=== PATIENT | female | born 1955 | race Caucasian/White ===

== ENCOUNTER → 2021-03-28 15:16 | Outpatient (CLI) | payer MEDICARE, SELFPAY ==
--- NOTE | 2021-03-28 | DI.MG.S_ITS ---
BILATERAL DIGITAL SCREENING MAMMOGRAM 3D/2D WITH CAD: 03/28/2021 CLINICAL: Routine screening. Comparison is made to exams dated: 09/16/2019 mammogram, 09/11/2018 stereotactic biopsy, 09/11/2018 mammogram, 09/03/2018 mammogram, 08/28/2018 mammogram, and 08/16/2016 mammogram - outside location. The tissue of both breasts is predominantly fatty. Current study was also evaluated with a Computer Aided Detection (CAD) system. There is an asymmetry in the right breast anterior depth central to the nipple seen on the craniocaudal view only. There is an asymmetry in the left breast middle depth central to the nipple seen on the craniocaudal view only. There also is an asymmetry in the left breast middle depth central to the nipple seen on the craniocaudal view only. No other significant masses or calcifications are seen in either breast. IMPRESSION: INCOMPLETE: NEEDS ADDITIONAL IMAGING EVALUATION The asymmetry in the right breast anterior depth central to the nipple seen on the craniocaudal view only is indeterminate. Additional views with possible ultrasound are recommended. The asymmetry in the left breast middle depth central to the nipple seen on the craniocaudal view only is indeterminate. Additional views with possible ultrasound are recommended. The asymmetry in the left breast middle depth central to the nipple seen on the craniocaudal view only is indeterminate. Additional views with possible ultrasound are recommended. This exam was interpreted at Station ID: [id number]. NOTE: For mammograms, a report in lay terms will be sent to the patient. Approximately 15% of breast malignancies will not be visualized mammographically. In the management of a palpable breast mass, a negative mammogram must not discourage biopsy of a clinically suspicious lesion. Electronically Signed By: Dhruv Calvillo M.D., jr/julissa:03/28/2021 15:40:05 letter sent: Additional Imaging Needed ACR BI-RADS Category 0: Incomplete 3340F
== END ==
PROVIDERS: PCP Internal Medicine; Referring Provider Internal Medicine; Visit Provider Internal Medicine
DX: Z12.31 Encounter for screening mammogram for malignant neoplasm of breast (principal)
CPT/HCPCS: 77063; 77067

== ENCOUNTER → 2021-05-04 13:23 | Outpatient (CLI) | payer MEDICARE, SELFPAY ==
--- NOTE | 2021-05-04 | DI.MG.S_ITS ---
BILATERAL DIGITAL DIAGNOSTIC MAMMOGRAM 3D/2D WITH ADDITIONAL VIEWS: 05/04/2021 CLINICAL: Additional evaluation requested from prior study. Comparison is made to exams dated: 03/28/2021 mammogram - [facility], 09/16/2019 mammogram, and 09/11/2018 mammogram - outside location. The tissue of both breasts is heterogeneously dense. This may lower the sensitivity of mammography. There is an oval equal density focal asymmetry in the right breast at 12 o'clock middle depth. This is seen in additional views. There is an oval equal density focal asymmetry in the left breast at 3 o'clock middle depth. This is seen in additional views. There also is an oval equal density focal asymmetry in the left breast at 5 o'clock posterior depth. This is seen in additional views. No other significant masses or calcifications are seen in either breast. IMPRESSION: INCOMPLETE: NEEDS ADDITIONAL IMAGING EVALUATION The oval equal density focal asymmetry in the right breast at 12 o'clock middle depth is indeterminate. An ultrasound is recommended. The oval equal density focal asymmetry in the left breast at 3 o'clock middle depth is indeterminate. An ultrasound is recommended. The oval equal density focal asymmetry in the left breast at 5 o'clock posterior depth is indeterminate. An ultrasound is recommended. This exam was interpreted at Station ID: [id number]. NOTE: For mammograms, a report in lay terms will be sent to the patient. Approximately 15% of breast malignancies will not be visualized mammographically. In the management of a palpable breast mass, a negative mammogram must not discourage biopsy of a clinically suspicious lesion. Electronically Signed By: Yefri machado/julissa:05/04/2021 15:28:47 ACR BI-RADS Category 0: Incomplete 3340F
--- NOTE | 2021-05-04 13:24 | DI.US.S_ITS ---
LIMITED ULTRASOUND OF LEFT BREAST: 05/04/2021 CLINICAL: Patient returns today to evaluate an asymmetry in the left breast. Comparison is made to exams dated: 05/04/2021 mammogram, 03/28/2021 mammogram - [facility], 09/16/2019 mammogram, 09/11/2018 mammogram, 09/03/2018 mammogram, and 08/28/2018 mammogram - outside location. Color flow ultrasound of the left breast 3-5 o'clock region was performed. Molina scale images of the real-time examination were reviewed. There is a 0.4 cm x 0.4 cm x 0.4 cm oval cyst with a smooth internal wall in the left breast at 3 o'clock middle depth 5 cm from the nipple. This oval cyst is hypoechoic with posterior acoustic enhancement. This correlates with mammography findings. There also is a 0.4 cm x 0.5 cm x 0.3 cm oval cyst with a smooth internal wall in the left breast at 5 o'clock posterior depth 6 cm from the nipple. This oval cyst is hypoechoic with posterior acoustic enhancement. This correlates with mammography findings. IMPRESSION: PROBABLY BENIGN The 0.4 cm x 0.4 cm x 0.4 cm oval cyst in the left breast at 3 o'clock middle depth is consistent with a complicated cyst and is probably benign. The 0.4 cm x 0.5 cm x 0.3 cm oval cyst in the left breast at 5 o'clock posterior depth is consistent with a complicated cyst and is probably benign. A follow-up mammogram and an ultrasound in 6 months is recommended to demonstrate stability. This exam was interpreted at Station ID: [id number]. Electronically Signed By: Yefri machado/julissa:05/04/2021 16:41:50 letter sent: Followup Recommended Ultrasound BI-RADS: 3 Probably benign
--- NOTE | 2021-05-04 13:24 | DI.US.S_ITS ---
LIMITED ULTRASOUND OF RIGHT BREAST: 05/04/2021 CLINICAL: Patient returns today to evaluate an asymmetry in the right breast. Comparison is made to exams dated: 05/04/2021 mammogram, 03/28/2021 mammogram - [facility], 09/16/2019 mammogram, 09/11/2018 mammogram, 09/03/2018 mammogram, and 08/28/2018 mammogram - outside location. Color flow and real-time ultrasound of the right breast 11-12 o'clock region were performed. There is a 0.4 cm x 0.4 cm x 0.4 cm oval cyst with a smooth internal wall in the right breast at 11 o'clock middle depth 5 cm from the nipple. This oval cyst is hypoechoic with posterior acoustic enhancement. This correlates as an incidental finding. There also is a 0.5 cm x 0.4 cm x 0.4 cm oval cyst with a smooth internal wall in the right breast at 12 o'clock middle depth 3 cm from the nipple. This oval cyst is hypoechoic with posterior acoustic enhancement. This correlates with mammography findings. IMPRESSION: PROBABLY BENIGN The 0.4 cm x 0.4 cm x 0.4 cm oval cyst in the right breast at 11 o'clock middle depth is consistent with a complicated cyst and is probably benign. The 0.5 cm x 0.4 cm x 0.4 cm oval cyst in the right breast at 12 o'clock middle depth is consistent with a complicated cyst and is probably benign. A follow-up ultrasound in 6 months is recommended to demonstrate stability. This exam was interpreted at Station ID: [id number]. Electronically Signed By: Yefri machado/julissa:05/04/2021 16:46:11 Ultrasound BI-RADS: 3 Probably benign
== END ==
PROVIDERS: PCP Internal Medicine; Referring Provider Internal Medicine; Visit Provider Internal Medicine
DX: R92.8 Other abnormal and inconclusive findings on diagnostic imaging of breast (principal); N60.01 Solitary cyst of right breast; N60.02 Solitary cyst of left breast; Z13.820 Encounter for screening for osteoporosis; Z78.0 Asymptomatic menopausal state; M85.851 Other specified disorders of bone density and structure, right thigh
CPT/HCPCS: 76642; 77066; 77080; G0279

== ENCOUNTER → 2022-01-30 08:48 | Outpatient (CLI) | payer MEDICARE, SELFPAY ==
--- NOTE | 2022-01-30 | DI.MG.S_ITS ---
BILATERAL DIGITAL DIAGNOSTIC MAMMOGRAM 3D/2D: 01/30/2022 CLINICAL: Short term follow up. Comparison is made to exams dated: 05/04/2021 mammogram, 03/28/2021 mammogram - [facility], 09/16/2019 mammogram - outside location, 05/04/2021 ultrasound, and 05/04/2021 ultrasound - [facility]. Both breasts are heterogeneously dense, which may obscure small masses (category c / 51-75% glandular tissue). There is an asymmetry in the right breast anterior depth central to the nipple seen on the craniocaudal view only. This is less prominent. There is an asymmetry in the left breast posterior depth lateral region seen on the craniocaudal view only. This is not significantly changed. There also is an asymmetry in the left breast middle depth central to the nipple seen on the craniocaudal view only. This is not significantly changed. Post operative finding in the right breast. No other significant masses or calcifications are seen in either breast. IMPRESSION: INCOMPLETE: NEEDS ADDITIONAL IMAGING EVALUATION The asymmetry in the right breast anterior depth central to the nipple seen on the craniocaudal view only is indeterminate. The asymmetry in the left breast posterior depth lateral region seen on the craniocaudal view only is indeterminate. The asymmetry in the left breast middle depth central to the nipple seen on the craniocaudal view only is indeterminate. A targeted ultrasound is recommended and left side will immediately follow. Right side could not be preformed today. The patient should be brought back when feasible. Based on the Tyrer Cuzick model (a risk assessment model) the patient's lifetime risk is 9.7% and her 10 year risk is 4.9%. According to the ACR, ACS, and NCCN guidelines, an annual breast MRI exam along with mammogram is recommended if the patient's lifetime risk is 20% or greater. This exam was interpreted at Station ID: [id number]. NOTE: For mammograms, a report in lay terms will be sent to the patient. Approximately 15% of breast malignancies will not be visualized mammographically. In the management of a palpable breast mass, a negative mammogram must not discourage biopsy of a clinically suspicious lesion. Electronically Signed By: Georges Pimentel M.D. [facility] [place]/:01/30/2022 10:23:52 Entry: - 01/31/2022 09:12:31 letter sent: Additional Imaging Needed ACR BI-RADS Category 0: Incomplete 3340F
--- NOTE | 2022-01-30 08:49 | DI.US.S_ITS ---
LIMITED ULTRASOUND OF LEFT BREAST: 01/30/2022 CLINICAL: 6 month follow-up of cysts. Comparison is made to exams dated: 01/30/2022 mammogram, 05/04/2021 ultrasound, 05/04/2021 mammogram, 03/28/2021 mammogram - [facility], 09/16/2019 mammogram, and 09/11/2018 stereotactic biopsy - outside location. Color flow and real-time ultrasound of the left breast were performed. Molina scale images of the real-time examination were reviewed. There is a stable 0.4 cm x 0.3 cm x 0.3 cm oval cyst in the left breast at 3 o'clock middle depth 5 cm from the nipple. This oval cyst is hypoechoic with posterior acoustic enhancement. This correlates with mammography findings. There also is a stable 0.4 cm x 0.3 cm x 0.3 cm oval cyst in the left breast at 5 o'clock posterior depth 6 cm from the nipple. This oval cyst is hypoechoic with posterior acoustic enhancement. This correlates with mammography findings. IMPRESSION: PROBABLY BENIGN Stable 0.4 cm complicated cyst in the left breast at 3 o'clock middle depth is probably benign. Stable 0.4 cm complicated cyst in the left breast at 5 o'clock posterior depth is probably benign. A follow-up mammogram and an ultrasound in 6 months is recommended to demonstrate stability. Exam findings were conveyed to the patient. This exam was interpreted at Station ID: [id number]. Electronically Signed By: Georges Pimentel M.D. [facility] [place]/:01/30/2022 09:56:47 letter sent: Followup Recommended Ultrasound BI-RADS: 3 Probably benign
== END ==
PROVIDERS: PCP Internal Medicine; Referring Provider Internal Medicine; Visit Provider Internal Medicine
DX: R92.8 Other abnormal and inconclusive findings on diagnostic imaging of breast (principal); N60.02 Solitary cyst of left breast
CPT/HCPCS: 76642; 77066; G0279

== ENCOUNTER → 2022-03-01 14:13 | Outpatient (CLI) | payer MEDICARE, SELFPAY ==
--- NOTE | 2022-03-01 | DI.US.S_ITS ---
ULTRASOUND OF RIGHT BREAST: 03/01/2022 CLINICAL: 6 month follow-up of cysts. Comparison is made to exams dated: 01/30/2022 mammogram, 05/04/2021 ultrasound, 05/04/2021 mammogram, and 03/28/2021 mammogram - [facility]. Color flow ultrasound of the right breast was performed. Molina scale images of the real-time examination were reviewed. There is a stable 0.5 cm round cyst in the right breast at 11 o'clock middle depth 5 cm from the nipple. This round cyst is hypoechoic with posterior acoustic enhancement. This correlates with mammography findings. Color flow imaging demonstrates that there is no vascularity present. There also is a 0.2 cm x 0.2 cm x 0.2 cm oval cyst in the right breast at 12 o'clock anterior depth 3 cm from the nipple. This oval cyst is hypoechoic. This abnormality is decreased in size and correlates with mammography findings. Color flow imaging demonstrates that there is no vascularity present. Additionally, there is a 0.3 cm x 0.3 cm x 0.3 cm oval cyst in the right breast at 1 o'clock anterior depth 3 cm from the nipple. This oval cyst is hypoechoic. There is an echogenic posterior wall. This correlates as an incidental finding but was not seen on the prior mammogram. Color flow imaging demonstrates that there is no vascularity present. IMPRESSION: PROBABLY BENIGN The 0.5 cm round cyst in the right breast at 11 o'clock middle depth is stable, consistent with a complicated cyst and is probably benign. The 0.2 cm x 0.2 cm x 0.2 cm oval cyst in the right breast at 12 o'clock anterior depth is decreasing in size, consistent with a complicated cyst and is probably benign. The 0.3 cm x 0.3 cm x 0.3 cm oval cyst in the right breast at 1 o'clock anterior depth is incidentally found, consistent with a complicated cyst and is probably benign. A follow-up right mammogram and an ultrasound in 6 months is recommended to demonstrate stability. The patient will be due for bilateral mammograms at that same visit. Findings and recommendations were conveyed to the patient at time of exam. This exam was interpreted at Station ID: [id number]. Electronically Signed By: Chery alejandro/:03/01/2022 16:51:52 letter sent: Followup Recommended Ultrasound BI-RADS: 3 Probably benign
--- NOTE | 2022-03-01 | DI.US.S_ITS ---
PROCEDURE: US THYROID INDICATIONS: NONTOXIC MULTINODULAR GOITER TECHNIQUE: Real-time scanning was performed of the thyroid gland, with image documentation. COMPARISON: None. FINDINGS: Right: Thyroid lobe measures 4.1 x 1.5 x 2.0 cm, and is heterogeneous in echotexture. Left: Thyroid lobe measures 5.5 x 2.7 x 2.0 cm, and is heterogeneous in echotexture. Isthmus: 3.5 mm thick. Nodule number: 1 Location: Left superior lateral Size: 2.0 x 1.2 x 1.5 cm. Composition: Solid Echogenicity: Isoechoic Shape: wider than tall. Margins: Small both Echogenic foci: Non Total points: 3 ACR TI-RADS category: 3 Nodule number: 2 Location: Left superior medial Size: 0.9 x 0.7 x 1.0 cm. Composition: Solid Echogenicity: Hypoechoic Shape: wider than tall. Margins: Smooth Echogenic foci: Non Total points: 4 ACR TI-RADS category: 4 Nodule number: 3 Location: Left superior medial Size: 1.6 x 1.0 x 1.7 cm. Composition: Solid Echogenicity: Isoechoic Shape: wider than tall. Margins: Small Echogenic foci: Non Total points: 3 ACR TI-RADS category: 3 Nodule number: 4 Location: Left mid Size: 2.3 x 2.0 x 2.2 cm. Composition: Solid Echogenicity: Hyperechoic Shape: wider than tall. Margins: Small Echogenic foci: Non Total points: 3 ACR TI-RADS category: 3 IMPRESSION: Multiple thyroid nodules are identified. Ultrasound findings are suggestive of multinodular goiter. Nodule 2 is moderately suspicious and other nodules are mildly are suspicious. Recommend a follow-up ultrasound in 12 months. Please see enclosed follow-up recommendation. ACR TI-RADS definitions and recommendations: TI-RADS 1 (benign): 0 points. FNA not needed. TI-RADS 2 (not suspicious): 2 points. FNA not needed. TI-RADS 3 (mildly suspicious): 3 points. * FNA if 2.5 cm or larger, follow up if 1.5 cm or larger (at 1, 3, and 5 years). TI-RADS 4 (moderately suspicious): 4-6 points. * FNA if 1.5 cm or larger, follow up if 1 cm or larger (at 1, 2, 3, and 5 years). TI-RADS 5 (highly suspicious): 7 points or more. * FNA if 1 cm or larger, follow up if 0.5 cm or larger (every year for 5 years). Dictated by: Mar Gagnon M.D. on 03/03/2022 at 16:24 Approved by: Mar Gagnon M.D. on 03/03/2022 at 16:29
== END ==
PROVIDERS: PCP Internal Medicine; Referring Provider Internal Medicine; Visit Provider Internal Medicine
DX: R92.8 Other abnormal and inconclusive findings on diagnostic imaging of breast (principal); E04.2 Nontoxic multinodular goiter; N60.01 Solitary cyst of right breast
CPT/HCPCS: 76536; 76642

== ENCOUNTER → 2022-06-14 10:10 | Outpatient (CLI) | payer MEDICARE, SELFPAY ==
--- NOTE | 2022-06-14 | DI.RAD.S_ITS ---
PROCEDURE: FL BARIUM SWALLOW INDICATIONS: Dysphagia, unspecified COMPARISON: None. FINDINGS: Function: There is diminished esophageal stripping which is greater than expected for age. There is a persistent contrast column is seen within the esophagus in the prone position. In the upright position the contrast column is also seen but is brief. No elicited gastroesophageal reflux. There is normal transit of a calibrated barium tablet through the esophagus into the stomach. Morphology: Air-contrast images demonstrate normal mucosal morphology. Single contrast views show no esophageal strictures, extrinsic mass effects, or diverticula. Limited images of the stomach demonstrate normal appearance. IMPRESSION: [id number] esophageal dysmotility which is greater than expected for age. No elicited gastroesophageal reflux. No diverticulum. Dictated by: Georges Pimentel M.D. on 06/14/2022 at 12:58 Approved by: Georges Pimentel M.D. on 06/14/2022 at 13:05
== END ==
PROVIDERS: PCP Internal Medicine; Referring Provider Internal Medicine Gastroenterology; Visit Provider Internal Medicine Gastroenterology
DX: K21.9 Gastro-esophageal reflux disease without esophagitis (principal); K22.4 Dyskinesia of esophagus; R13.10 Dysphagia, unspecified; R11.10 Vomiting, unspecified
CPT/HCPCS: 74220

== ENCOUNTER 2022-07-31 08:16 | Day surgery (SDC) | payer MEDICARE, SELFPAY ==
--- NOTE | 2022-07-31 | PATH_ITS ---
[facility] Accession Number: [id number] No. of containers..04 Tissue . 01 Material submitted: . PART A: gastrointestinal site - ANTRUM BIOPSY PART B: gastrointestinal site - ANTRUM POLYPS PART C: esophagus - MID ESOPHAGUS BIOPSY PART D: colon - DESCENDING COLON POLYP . 01 Diagnosis: A. Gastric Antrum, Biopsy: Gastric antral mucosa with mild chronic inflammation. Negative for Helicobacter organisms by immunohistochemistry. Negative for intestinal metaplasia. Negative for dysplasia or malignancy. . B. Gastric Antral Polyps: Fundic gland polyps. No evidence of Helicobacter organisms on H/E stain. Negative for intestinal metaplasia. Negative for dysplasia and malignancy. Additional step sections examined. . C. Mid Esophagus, Biopsy: Squamous epithelium with no diagnostic abnormality. Intraepithelial eosinophils are not increased. Negative for dysplasia and malignancy. . D. Descending Colon Polyp: Serrated lesion, cannot exclude sessile serrated adenoma. [facility] 08/07/2022 1305 Local . 01 Comment: Part B: As part of routine production quality manager, Dr. Reyes has reviewed part B of this case and agrees there is no evidence of neoplasm. . . 01 Electronically signed: . Carter Mccall MD, PhD, Pathologist NPI- [id number] . 01 Gross description: . Part A: ANTRUM BIOPSY: Received in formalin are 4 fragment(s) of bojorquez, soft tissue measuring 0.1 x 0.1 x 0.1 cm to 0.2 x 0.2 x 0.2 cm submitted entirely in 1 cassette(s) Part B: ANTRUM POLYPS: Received in formalin are 3 fragment(s) of bojorquez, soft tissue measuring 0.2 x 0.2 x 0.2 cm to 0.3 x 0.3 x 0.3 cm submitted entirely in 1 cassette(s) Part C: MID ESOPHAGUS BIOPSY: Received in formalin is 1 fragment(s) of bojorquez, soft tissue measuring 0.4 x 0.2 x 0.1 cm submitted entirely in 1 cassette(s) Part D: DESCENDING COLON POLYP: Received in formalin is 1 fragment(s) of bojorquez, soft tissue measuring 0.3 x 0.2 x 0.2 cm submitted entirely in 1 cassette(s) /[facility]ISA 08/03/2022 0056 Local . 01 Microscopic: . A. An immunohistochemical stain was performed to evaluate for Helicobacter organisms and is negative. The control stain showed appropriate reactivity. . * This test was developed and its performance characteristics determined by [facility]. It has not been cleared or approved by the U.S. Food and Drug Administration. The FDA has determined that such clearance or approval is not necessary. This test is used for clinical purposes. It should not be regarded as investigational or for research. . 01 Pathologist provided ICD-10: K29.70, K31.7, R13.14, D12.4 . 01 CPT . 429924, 217940, 137280, 171807, R45522 Specimen Comment: A courtesy copy of this report has been sent to [phone] Performed at: 01 [facility] [address] [place] [address] [address], [place], [place] [id number] MD Roberto Reyes MD Phone: [phone]
[2022-07-31 08:52] VITALS: BP 132/73; PULSE 77; RESP 18; TEMP 36.1; O2SAT 95; BMI 29.9
[2022-07-31] MEDS: LACTATED RINGERS 1,000 ML 100 ML IV (09:02)
--- NOTE | 2022-07-31 09:53 | PM.HP.1 ---
History of Present Illness History of Present Illness Date Patient Seen: 07/31/22 Time Patient Seen: 09:53 Chief complaint: WIC Narrative: Colon cancer screening. Personal history of colon polyps. Dysphagia. I reviewed the recent barium. No focal strictures identified. [facility] Medical History Colon polyps Colonoscopy planned Depression GERD (gastroesophageal reflux disease) Hypercholesteremia Surgical History H/O breast biopsy History of hysteroscopy History of lumpectomy Social History household members: spouse Smoking Status: Never smoker alcohol intake: current Meds Home Medications and Allergies Home Medications Medication Instructions Recorded Confirmed Type Multi Vitamin 100 mg PO DAILY 07/31/22 07/31/22 History atorvastatin 20 mg PO DAILY 07/31/22 07/31/22 History meloxicam 15 mg PO DAILY 07/31/22 07/31/22 History pantoprazole 40 mg PO DAILY 07/31/22 07/31/22 History sertraline 200 mg PO DAILY 07/31/22 07/31/22 History Allergies Allergy/AdvReac Type Severity Reaction Status Date / Time No Known Drug Allergies Allergy Verified 07/31/22 08:29 Review of Systems Review of Systems ROS: Yes All systems reviewed with the patient and are negative except as otherwise documented Exam Vital Signs (past 8 hours): - 07/31/22 08:52 Temperature 97 F L Pulse Rate 77 Respiratory Rate 18 Blood Pressure 132/73 Pulse Oximetry 95 Oxygen Delivery Method Room Air Oxygen Delivery Method Room Air Const General: cooperative HENMT Head: normal to inspection Eyes General: appearance normal, both eyes and all related structures Neck Neck: normal visual inspection Chest Chest: normal inspection of the chest Resp Effort & Inspection: normal respiratory effort Cardio Rate: regular rate GI Inspection: normal to inspection Skin General: no rashes or lesions noted Neuro General: patient alert and patient awake Extrem General: normal to inspection and no pedal edema Psych Appearance: grossly normal Assessment & Plan Assessment & Plan narrative: 66-year-old female with dysphagia to pills and peanut butter. She is a remote history of colon polyps. EGD and colonoscopy are pursued today.
--- NOTE | 2022-07-31 09:55 | PM.PREOP ---
Pre-operative Note Interval Note History & Physical reviewed/Exam performed by Physician: Yes Changes to H&P: No ASA Class (for procedural sedation): II
--- NOTE | 2022-07-31 11:08 | P.OP.EGD&C_ITS ---
Operative Date/Time/Diagnoses Date of procedure: 07/31/22 Time of procedure: 11:08 Pre-op diagnosis: Dysphagia, personal history of colon polyps Post-op diagnosis: same Procedure & Clinicians Study performed: EGD with biopsies and colonoscopy with hot snare polypectomy Same procedure as scheduled: Yes Indications: Dysphagia and personal history of colon polyps Surgeon: Christian Younger Procedure Notes SCOAP/Timeout: Done Procedure in detail: After the risks and benefits were explained, written and verbal informed consent was obtained. The patient was brought into the procedure room and placed into the left lateral decubitus position. Please see anesthesia notes for sedation details. The scope was introduced into the mouth through the bite block and advanced under direct visualization to the 2nd portion of the duodenum. The scope was slowly withdrawn carefully examining the mucosa for any defects or lesions. Retroflexed views were accomplished in the stomach. The stomach was decompressed, the scope was then removed from the patient who tolerated the procedure well. The patient was then turned around a digital rectal examination was accomplished. The scope was introduced into the rectum and advanced under direct visualization to the cecum as identified by the appendiceal orifice and ileocecal valve. The scope was slowly withdrawn to carefully examine the mucosa for any defects or lesions. Multiple direct views were made through the dentate line for exclusion of pathology the colon procedure well. Adult colonoscope Bowel prep adequate Scope withdrawal time: 13 minutes Sedation minutes: 33 Complications: none Impression: 1. Duodenum: This was visually unremarkable from the bulb through to the 2nd portion. 2. Stomach: Patient had streaky erythema all throughout the antrum and biopsies were acquired for exclusion of Helicobacter. There were several scattered small benign-appearing polyps. A few of these were sampled for histopathologic analysis. Otherwise retroflexed views of the LES revealed a small sliding hiatal hernia. 3. Esophagus: The squamocolumnar junction correlated with the top of the gastric folds. GEJ was at approximately 40 cm from the incisors. No acute erosive changes no strictures no mass lesions. Mid esophageal biopsies were taken for exclusion of eosinophilic infiltration in that we did not identify any mucosal pathology to account for the dysphagia. 4. Colon: There was some diverticulosis in the left colon. Patient had grade 2 internal hemorrhoids. In the descending colon there was an approximately 6 mm sessile polyp removed with hot snare. No additional mucosal pathology was appreciated throughout. Endoscopic diagnosis 1. Subtle sliding hiatal hernia 2. Small gastric polyps 3. Gastropathy 4. Colon polyp 5. Diverticulosis 6. Grade 2 hemorrhoids Post-procedure Plan for aftercare: 1. Await histopathology. 2. Continue anti-reflux therapy. 3. Surveillance endoscopy will be considered after review of the polyp pathology. 4. Consideri ng personal history of colon polyps, repeat colonoscopy will likely be suggested for 5 years. Disposition: PACU
[2022-07-31 11:10] VITALS: BP 100/64; PULSE 56; RESP 14; TEMP 36.3; O2SAT 94
[2022-07-31 11:15] VITALS: BP 104/66; PULSE 54; RESP 14; O2SAT 96
[2022-07-31 11:21] VITALS: BP 108/49; PULSE 69; RESP 14; O2SAT 96
[2022-07-31 11:27] VITALS: BP 116/71; PULSE 56; RESP 12; TEMP 36.3; O2SAT 97
== END 2022-07-31 12:04 | disposition home or self-care (01) ==
PROVIDERS: PCP Internal Medicine; Referring Provider Internal Medicine Gastroenterology; Visit Provider Internal Medicine Gastroenterology
PROC: 0DJ08ZZ Inspection of Upper Intestinal Tract, Via Natural or Artificial Opening Endoscopic (ICD-10-PCS; CPT 43235; principal; 2022-07-31 09:30)
PROC: 0DJD8ZZ Inspection of Lower Intestinal Tract, Via Natural or Artificial Opening Endoscopic (ICD-10-PCS; CPT 45378; 2022-07-31 09:30)
DX: Z12.11 Encounter for screening for malignant neoplasm of colon (principal); Z86.010 Personal history of colon polyps; R13.10 Dysphagia, unspecified; K44.9 Diaphragmatic hernia without obstruction or gangrene; K31.9 Disease of stomach and duodenum, unspecified; K57.30 Diverticulosis of large intestine without perforation or abscess without bleeding; K64.1 Second degree hemorrhoids; K29.50 Unspecified chronic gastritis without bleeding; K31.7 Polyp of stomach and duodenum; D12.4 Benign neoplasm of descending colon
CPT/HCPCS: 45385; 43239; J2704

== ENCOUNTER → 2022-09-20 09:30 | Outpatient (CLI) | payer MEDICARE, SELFPAY ==
--- NOTE | 2022-09-20 | DI.MG.S_ITS ---
BILATERAL DIGITAL DIAGNOSTIC MAMMOGRAM 3D/2D: 09/20/2022 CLINICAL: Short term follow up for bilateral breasts. Comparison is made to exams dated: 01/30/2022 mammogram, 05/04/2021 mammogram, and 03/28/2021 mammogram - [facility]. Both breasts are heterogeneously dense, which may obscure small masses (category c / 51-75% glandular tissue). There is a stable asymmetry in the right breast anterior depth central to the nipple. There is a stable asymmetry in the left breast posterior depth lateral region. There also is a stable asymmetry in the left breast middle depth central to the nipple. No other significant masses or calcifications are seen in either breast. IMPRESSION: INCOMPLETE: NEEDS ADDITIONAL IMAGING EVALUATION The stable asymmetry in the right breast anterior depth central to the nipple is indeterminate. The stable asymmetry in the left breast posterior depth lateral region is indeterminate. The stable asymmetry in the left breast middle depth central to the nipple is indeterminate. A targeted ultrasound of the bilateral breasts is recommended and will be performed immediately following this exam. Based on the Tyrer Cuzick model (a risk assessment model) the patient's lifetime risk is 9.3% and her 10 year risk is 4.9%. According to the ACR, ACS, and NCCN guidelines, an annual breast MRI exam along with mammogram is recommended if the patient's lifetime risk is 20% or greater. This exam was interpreted at Station ID: [id number]. NOTE: For mammograms, a report in lay terms will be sent to the patient. Approximately 15% of breast malignancies will not be visualized mammographically. In the management of a palpable breast mass, a negative mammogram must not discourage biopsy of a clinically suspicious lesion. Electronically Signed By: Rosmery Medina M.D. lk/:09/20/2022 10:10:52 ACR BI-RADS Category 0: Incomplete 3340F
--- NOTE | 2022-09-20 09:31 | DI.US.S_ITS ---
LIMITED ULTRASOUND OF LEFT BREAST AND AXILLA: 09/20/2022 CLINICAL: Patient returns today to evaluate asymmetries in bilateral breasts. Comparison is made to exams dated: 09/20/2022 mammogram, 03/01/2022 ultrasound, 01/30/2022 ultrasound, 01/30/2022 mammogram, 05/04/2021 ultrasound, and 05/04/2021 ultrasound - [facility]. Color flow ultrasound of the left breast axilla was performed on the areas of interest. Molina scale images of the real-time examination were reviewed. There is a stable oval cyst in the left breast at 3 o'clock middle depth 5 cm from the nipple. This oval cyst is anechoic with posterior acoustic enhancement. This correlates with mammography findings. There also is a stable oval cyst in the left breast at 5 o'clock posterior depth 6 cm from the nipple. This oval cyst is anechoic with posterior acoustic enhancement. This correlates with mammography findings. IMPRESSION: BENIGN There is no sonographic evidence of malignancy. The stable oval cyst in the left breast at 3 o'clock middle depth is consistent with a simple cyst and is benign. The stable oval cyst in the left breast at 5 o'clock posterior depth is consistent with a simple cyst and is benign. Return to annual mammogram screening schedule is recommended. This exam was interpreted at Station ID: [id number]. Electronically Signed By: Rosmery gonzalez/:09/20/2022 11:29:59 letter sent: Normal Exam Ultrasound BI-RADS: 2 Benign
--- NOTE | 2022-09-20 09:31 | DI.US.S_ITS ---
ULTRASOUND OF RIGHT BREAST: 09/20/2022 CLINICAL: Patient returns today to evaluate asymmetries in bilateral breasts. Comparison is made to exams dated: 09/20/2022 mammogram, 03/01/2022 ultrasound, 01/30/2022 ultrasound, 01/30/2022 mammogram, 05/04/2021 ultrasound, and 05/04/2021 ultrasound - [facility]. Ultrasound of the right breast was performed on the areas of interest. Molina scale images of the real-time examination were reviewed. There is a stable oval cyst in the right breast at 1 o'clock anterior depth 3 cm from the nipple, a stable round cyst in the right breast at 11 o'clock middle depth 5 cm from the nipple, and a stable oval cyst in the right breast at 12 o'clock anterior depth. IMPRESSION: BENIGN There is no sonographic evidence of malignancy. The stable cysts in the right breast are consistent with a simple cysts and are benign. Return to annual mammogram screening schedule is recommended. This exam was interpreted at Station ID: [id number]. Electronically Signed By: Rosmery gonzalez/:09/20/2022 11:34:55 Ultrasound BI-RADS: 2 Benign
== END ==
PROVIDERS: PCP Internal Medicine; Referring Provider Internal Medicine; Visit Provider Internal Medicine
DX: R92.8 Other abnormal and inconclusive findings on diagnostic imaging of breast (principal); N60.01 Solitary cyst of right breast; N60.02 Solitary cyst of left breast
CPT/HCPCS: 76642; 77066; G0279

== ENCOUNTER → 2023-06-18 15:48 | Outpatient (CLI) | payer OTHER, SELFPAY ==
--- NOTE | 2023-06-18 15:52 | DI.RAD.S_ITS ---
PROCEDURE: XR HAND RT 2V INDICATIONS: SWELLING OF RIGHT FINGER TECHNIQUE: 2 views of the hand(s) acquired. COMPARISON: None. FINDINGS: Bones: No acute fracture or dislocation. Severe degenerative changes are present at the 1st CMC joint and the triscaphe joint. Additionally, severe degenerative changes are present throughout the interphalangeal joints, most severe within the 3rd digit. No suspicious bony lesions. A probable subchondral cyst is present at the base of the right 3rd middle phalanx. Soft tissues: No suspicious soft tissue calcifications. IMPRESSION: 1. Severe osteoarthritis. Dictated by: Rosmery Medina M.D. on 06/18/2023 at 16:38 Approved by: Rosmery Medina M.D. on 06/18/2023 at 16:39
== END ==
PROVIDERS: PCP Internal Medicine; Referring Provider Internal Medicine; Visit Provider Internal Medicine
DX: M19.041 Primary osteoarthritis, right hand (principal); M18.11 Unilateral primary osteoarthritis of first carpometacarpal joint, right hand; M25.441 Effusion, right hand
CPT/HCPCS: 73120

== ENCOUNTER → 2023-07-02 13:28 | Outpatient (CLI) | payer OTHER, SELFPAY ==
--- NOTE | 2023-07-02 13:29 | DI.RAD.S_ITS ---
PROCEDURE: XR CHEST 2V INDICATIONS: CHEST PAIN TECHNIQUE: 2 views of the chest were acquired. COMPARISON: None. FINDINGS: Surgical changes and devices: None. Lungs and pleura: Lungs are clear. No pleural effusions or pneumothorax. Mediastinum: Mediastinal contours are normal. Heart size is normal. Bones and chest wall: No suspicious bony abnormalities. Soft tissues appear unremarkable. IMPRESSION: No acute cardiopulmonary abnormality is seen. Dictated by: Diogo De Luna M.D. on 07/02/2023 at 14:50 Approved by: Diogo De Luna M.D. on 07/02/2023 at 14:50
== END ==
PROVIDERS: PCP Internal Medicine; Referring Provider Internal Medicine; Visit Provider Internal Medicine
DX: R07.89 Other chest pain (principal)
CPT/HCPCS: 71046

== ENCOUNTER → 2023-08-01 08:46 | Outpatient (CLI) | payer OTHER, SELFPAY ==
--- NOTE | 2023-08-01 | DI.US.S_ITS ---
PROCEDURE: US THYROID INDICATIONS: CAROTID ATHEROSCLEROSIS/HX THYROID NODULE TECHNIQUE: Real-time scanning was performed of the thyroid gland, with image documentation. COMPARISON: [facility], US, US THYROID, 03/01/2022, 14:34. FINDINGS: Thyroid: Right lobe measures 4.6 x 1.4 x 1.6 cm. Left lobe measures 6.1 x 2.8 x 2.7 cm. Isthmus is 0.6 cm thick. Echotexture is heterogeneous. Nodule number: 1 Location: Left superior/lateral Size: Mildly decreased in size measuring 1.6 cm, previously 2.0 cm. Composition: Solid Echogenicity: Isoechoic Shape: wider than tall. Margins: Smooth Echogenic foci: None Total points: 3 ACR TI-RADS category: Mildly suspicious Nodule number: 2 Location: Left superior/medial Size: Stable at 0.9 cm. Composition: Solid Echogenicity: Hypoechoic Shape: wider than tall. Margins: Smooth Echogenic foci: None Total points: 4 ACR TI-RADS category: Moderately suspicious Nodule number: 3 Location: Left superior/medial Size: Increased in size measuring 2.2 x 1.2 x 1.9 cm, previously 1.6 x 1.0 x 1.7 cm. Composition: Solid Echogenicity: Isoechoic Shape: wider than tall. Margins: Smooth Echogenic foci: None Total points: 3 ACR TI-RADS category: Mildly suspicious Nodule number: 4 Location: Left mid Size: Increased in size measuring 2.8 x 1.8 x 2.3 cm, previously 2.3 x 2.0 x 2.0 cm. Composition: Solid Echogenicity: Hyperechoic Shape: wider than tall. Margins: Smooth Echogenic foci: None Total points: 3 ACR TI-RADS category: Mildly suspicious Nodule number: 5 Location: Right inferior Size: 0.9 x 1.2 x 1.0 cm. Composition: Solid Echogenicity: Isoechoic Shape: wider than tall. Margins: Smooth Echogenic foci: Macro calcifications Total points: 4 ACR TI-RADS category: Moderately suspicious IMPRESSION: Thyroid nodules as described above. Nodule 4 has increased in size and now qualifies for fine-needle aspiration. Nodule 3 has also increased in size, however does not qualify for fine-needle aspiration. Nodule 5 is new. Recommend fine needle aspiration for nodule 4 and 1 year follow-up ultrasound for the remaining nodules. ACR TI-RADS definitions and recommendations: TI-RADS 1 (benign): 0 points. FNA not needed. TI-RADS 2 (not suspicious): 2 points. FNA not needed. TI-RADS 3 (mildly suspicious): 3 points. * FNA if 2.5 cm or larger, follow up if 1.5 cm or larger (at 1, 3, and 5 years). TI-RADS 4 (moderately suspicious): 4-6 points. * FNA if 1.5 cm or larger, follow up if 1 cm or larger (at 1, 2, 3, and 5 years). TI-RADS 5 (highly suspicious): 7 points or more. * FNA if 1 cm or larger, follow up if 0.5 cm or larger (every year for 5 years). Dictated by: Diogo De Luna M.D. on 08/01/2023 at 11:50 Approved by: Diogo De Luna M.D. on 08/01/2023 at 11:56
--- NOTE | 2023-08-01 08:48 | DI.US.S_ITS ---
PROCEDURE: US CAROTID DOPPLER BI INDICATIONS: CAROTID ATHEROSCLEROSIS/HX THYROID NODULE TECHNIQUE: Color and pulse Doppler interrogation was performed of both carotid systems, with image documentation and velocity measurements. COMPARISON: None. FINDINGS: Stenosis calculations are based on SRU (Society of Radiologists in Ultrasound) criteria. Right side: Brachial blood pressure: 155/84 mm Hg. Common carotid artery peak systolic velocity: 68 cm/sec. Internal carotid artery peak systolic velocity: 84 cm/sec. Internal carotid artery end diastolic velocity: 34 cm/sec. External carotid artery peak systolic velocity: 81 cm/sec. ICA/CCA peak systolic ratio: 1.2. Molina scale imaging description: Mild atheromatous plaque is present at the bifurcation. Percent internal carotid artery stenosis: Less than 50% stenosis. Vertebral artery: Flow direction is antegrade. Left side: Brachial blood pressure: 146/75 mm Hg. Common carotid artery peak systolic velocity: 70 cm/sec. Internal carotid artery peak systolic velocity: 108 cm/sec. Internal carotid artery end diastolic velocity: 43 cm/sec. External carotid artery peak systolic velocity: 67 cm/sec. ICA/CCA peak systolic ratio: 1.5. Molina scale imaging description: Mild atheromatous plaque is present at the bifurcation Percent internal carotid artery stenosis: Less than 50% stenosis. Vertebral artery: Flow direction is antegrade. IMPRESSION: Less than 50% stenosis of the bilateral internal carotid arteries. Dictated by: Rosmery Medina M.D. on 08/01/2023 at 11:53 Approved by: Rosmery Medina M.D. on 08/01/2023 at 11:55
== END ==
LOC: US 08:46
PROVIDERS: PCP Internal Medicine; Referring Provider Internal Medicine; Visit Provider Internal Medicine
DX: I65.23 Occlusion and stenosis of bilateral carotid arteries (principal); E04.2 Nontoxic multinodular goiter; Z86.39 Personal history of other endocrine, nutritional and metabolic disease
CPT/HCPCS: 76536; 93880

== ENCOUNTER → 2023-08-14 12:41 | Outpatient (CLI) | payer OTHER, SELFPAY ==
--- NOTE | 2023-08-14 | PATH_ITS ---
Note [facility] Accession Number: [id number] TESTS RESULT FLAG UNITS REF RANGE LAB Clinician Provided Cytology Information No. of containers..01 Other (Miscellaneous) No. of containers..02 Previously Prepared Cytology Slide Source: LEFT THYROID NODULE #4 DIAGNOSIS: LEFT THYROID NODULE #4 NEGATIVE FOR MALIGNANT CELLS. [place] CATEGORY II. SPECIMEN CONSISTS OF SCANT, BENIGN FOLLICULAR CELLS, COLLOID, AND BLOOD. 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 Pathologist ICD10: E04.2 Signed out by: Deborah Mccracken MD, Pathologist NPI- [id number] Performed by: Shaheen Hartley, Turn Down Attendant ([facility]) Gross description: 30 CC, COLORLESS, CLEAR RECIEVED: IN CYTOLYT WITH 6 ALCOHOL FIXED AND 6 QUICK STAINED SLIDES ALSO 1 RNA VIAL WILL ON 02-06-2025.VO /VDU 08/15/2023 0606 Local FLAG LEGEND: L-Low Normal,H-High Normal,LL-Alert Low,HH-Alert High <-Panic Low,>-Panic High,A-Abnormal,AA-Critical Abnormal Performed at: 01 =Z [facility] [employer] [facility], [place] [address] Roberto Reyes MD, Performed at: [address], [place], [place] [id number] MD Roberto Reyes MD Phone: [phone]
--- NOTE | 2023-08-14 12:42 | DI.US.S_ITS ---
PROCEDURE: US FINE NEEDLE ASPIRATION INDICATIONS: THYROID NODULE TECHNIQUE: The indications, alternatives, benefits, risks, and complications of the procedure were explained to the patient. Written informed consent was obtained and placed in the chart. The thyroid region was examined sonographically and a site was chosen for ultrasound guided percutaneous sampling. The skin was prepared and draped in the usual fashion, and anesthetized with 1% lidocaine infiltrated from the skin down to the thyroid gland. Multiple passes were then performed, with contents emptied into an appropriate pathology specimen container. A bandage was applied to the area of access at completion of the study. COMPARISON: Ultrasound 08/01/2023 FINDINGS: Location(s) of lesion(s) sampled: Left midpole nodule (nodule 4 listed on comparison thyroid ultrasound). [place]: 25 gauge hypodermic needles. Number of passes: 5 Medications: 1% lidocaine for local anaesthesia. Complications: None. IMPRESSION: Successful ultrasound-guided thyroid nodule fine needle aspiration, with cytology results pending. Please see chart below for management recommendations based on cytology results. [place] [facility] ReportingRecommendationsNon-diagnostic* Repeat US-guided FNA, with on-site cytology evaluation if possible. * Repeated non-diagnostic nodules without high suspicion US features: close observation vs surgical consult. * Consider surgery if nodule has high suspicion US features, grows >20% in 2 dimensions on followup, or patient has clinical risk factors for malignancy. Benign* If nodule has high suspicion US features: repeat US and FNA within 12 months. * If nodule has low to intermediate suspicion US features: repeat US at 12-24 months. If nodule grows (20% increase in at least 2 dimensions, with minimal increase of 2 mm or >50% change in volume), or development of new suspicious US features, then repeat FNA or continue followup. * If nodule has very low suspicion US features: followup US at >24 months. Atypia of undetermined significance, follicular lesion of undetermined significanceRepeat FNA, molecular testing, followup US, or surgical consult.Follicular neoplasm, suspicious for follicular neoplasmSurgical consult; also consider molecular testing. Suspicious for malignancySurgical consult.MalignantSurgical consult. Dictated by: Alex Reed M.D. on 08/14/2023 at 15:21 Approved by: Alex Reed M.D. on 08/14/2023 at 15:22
== END ==
PROVIDERS: PCP Internal Medicine; Referring Provider Internal Medicine; Visit Provider Internal Medicine
DX: E04.2 Nontoxic multinodular goiter (principal)
CPT/HCPCS: 10005

== ENCOUNTER → 2023-12-07 15:18 | Outpatient (CLI) | payer OTHER, SELFPAY ==
--- NOTE | 2023-12-07 15:19 | DI.MG.S_ITS ---
BILATERAL DIGITAL SCREENING MAMMOGRAM 3D/2D WITH CAD: 12/07/2023 CLINICAL: Routine screening. Comparison is made to exams dated: 09/20/2022 mammogram, 01/30/2022 mammogram, 03/28/2021 mammogram, 05/04/2021 mammogram - [facility], 09/16/2019 mammogram, and 09/11/2018 mammogram - outside location. The breasts are heterogeneously dense, which may obscure small masses (category c / 51-75% glandular tissue). Current study was also evaluated with a Computer Aided Detection (CAD) system. No significant masses, calcifications, or other findings are seen in either breast. There has been no significant interval change. IMPRESSION: NEGATIVE There is no mammographic evidence of malignancy. A 1 year screening mammogram is recommended. Based on the Tyrer Cuzick model (a risk assessment model) the patient's lifetime risk is 8.8% and her 10 year risk is 4.9%. According to the ACR, ACS, and NCCN guidelines, an annual breast MRI exam along with mammogram is recommended if the patient's lifetime risk is 20% or greater. This exam was interpreted at Station ID: [id number]. NOTE: For mammograms, a report in lay terms will be sent to the patient. Approximately 15% of breast malignancies will not be visualized mammographically. In the management of a palpable breast mass, a negative mammogram must not discourage biopsy of a clinically suspicious lesion. Electronically Signed By: Sheila Gastelum M.D., Ph.D. florence/julissa:12/08/2023 00:44:26 letter sent: Normal Exam ACR BI-RADS Category 1: Negative
== END ==
PROVIDERS: PCP Internal Medicine; Referring Provider Internal Medicine; Visit Provider Internal Medicine
DX: Z12.31 Encounter for screening mammogram for malignant neoplasm of breast (principal); R92.333 Mammographic heterogeneous density, bilateral breasts
CPT/HCPCS: 77063; 77067

== ENCOUNTER → 2025-01-06 15:57 | Outpatient (CLI) | payer MEDICARE, SELFPAY ==
--- NOTE | 2025-01-06 15:59 | DI.MG.S_ITS ---
MM screening mammo BI: 01/06/2025. BI-RADS: 1 CLINICAL: 69-year old female for bilateral screening mammogram. Tyrer-Cuzick lifetime risk of 11.2%. No personal or first-degree family history of breast cancer. The patient had a prior right breast biopsy. PRIOR EXAMS 12/07/2023, 09/20/2022, 03/01/2022, 01/30/2022, MAMMOGRAPHY TECHNIQUE: 2D and 3D (tomosynthesis) digital mammographic views obtained, with additional images as needed for full coverage. Current study was also evaluated with a Computer Aided Detection (CAD) system. DENSITY C. The breasts are heterogeneously dense, which may obscure small masses. MAMMOGRAPHY FINDINGS Bilateral: No suspicious mass, asymmetry, microcalcification, or other abnormality seen. IMPRESSION: * No evidence of malignancy. RECOMMENDATIONS Bilateral * Annual screening mammography. OVERALL ASSESSMENT CATEGORY BI-RADS-1: Negative. The [employer] recommends annual screening mammography beginning at age 40 for women with average risk of breast cancer. ELECTRONICALLY SIGNED: Laith Echavarria M.D. on 01/07/2025 at 08:16:36 AM PT Interpreting Station ID: [id number]
== END ==
LOC: MAMMO 15:57
PROVIDERS: PCP Internal Medicine; Referring Provider Family Medicine; Visit Provider Family Medicine
DX: Z12.31 Encounter for screening mammogram for malignant neoplasm of breast (principal); R92.333 Mammographic heterogeneous density, bilateral breasts
CPT/HCPCS: 77063; 77067